=== PATIENT | male | born 1985 | race Caucasian/White ===

== ENCOUNTER 2017-07-01 14:20 | Emergency (ER) | payer BC ==
[2017-07-01] MEDS ORDERED: Bacitracin Oint 1 GM U/D Packet TOP ONE (14:36)
[2017-07-01] MEDS ORDERED: Diphtheria,Pertussis(Acell),Tetanus Vaccine 0.5 ML SDV IM ONE (15:08)
--- NOTE | 2017-07-01 15:14 | EDM.PDOC ---
ED HPI GENERAL MEDICAL PROBLEM - General Chief Complaint: Laceration Stated Complaint: LT HAND LACERATION Time Seen by Provider: 07/01/17 14:45 Source of Information: Reports: Patient History Limitations: Reports: No Limitations - History of Present Illness INITIAL COMMENTS - FREE TEXT/NARRATIVE: pt has a laceration in the left taylor salma, circular in shape from a bolt. The bolt had sharp edges. He is not current with his tetanus. Onset: Today Duration: Hour(s): Location: Reports: Upper Extremity, Left Associated Symptoms: Reports: No Other Symptoms Left Hand Pain Score (Numeric/FACES): 4 - Related Data Allergies Allergy/AdvReac Type Severity Reaction Status Date / Time No Known Allergies Allergy Verified 07/01/17 14:55 Home Meds: Home Meds NK [No Known Home Meds] 07/01/17 [History] Past Medical History - Past Health History Medical/Surgical History: Denies Medical/Surgical History Social & Family History - Tobacco Use Smoking Status *Q: Current Every Day Smoker Years of Tobacco use: 10 Packs/Tins Daily: 0.5 - Caffeine Use Caffeine Use: Reports: Coffee - Recreational Drug Use Recreational Drug Use: No ED ROS GENERAL - Review of Systems Review Of Systems: See Below Constitutional: Reports: No Symptoms HEENT: Reports: No Symptoms Respiratory: Reports: No Symptoms Cardiovascular: Reports: No Symptoms Endocrine: Reports: No Symptoms GI/Abdominal: Reports: No Symptoms : Reports: No Symptoms Musculoskeletal: Reports: Other (Pt has a circular laceration on the palm of his left had, 1 inch in length. ) Skin: Reports: No Symptoms ED EXAM, SKIN/RASH Exam: See Below Exam Limited By: No Limitations General Appearance: Alert Extremities: Other (pt has a 1 inch laceration in the palm of his left hand. ) Neurological: Alert, Oriented, Normal Cognition Course - Vital Signs Last Recorded V/S: Last Vital Signs Temp 36.6 C 07/01/17 15:00 Pulse 71 07/01/17 15:00 Resp 16 07/01/17 15:00 BP 145/90 H 07/01/17 15:00 Pulse Ox 96 07/01/17 15:00 - Orders/Labs/Meds Orders: Active Orders 24 hr Category Date Time Status Vaccines to be Administered [RC] PER UNIT ROUTINE Care 07/01/17 15:08 Ordered Diphth,Pertuss(Acell),Tet Vac [Adacel] Med 07/01/17 15:08 Once 0.5 ml IM .ONCE ONE Meds: Medications Discontinued Medications Generic Name Dose Route Start Last Admin Trade Name Cristian PRN Reason Stop Dose Admin Bacitracin 1 dose 07/01/17 14:36 07/01/17 15:00 Bacitracin Oint 1 Gm TOP 07/01/17 14:37 1 dose ONETIME ONE Administration Lidocaine HCl 5 ml 07/01/17 14:36 07/01/17 15:00 Xylocaine-Mpf 1% INJECT 07/01/17 14:37 5 ml ONETIME ONE Administration - Re-Assessments/Exams Free Text/Narrative Re-Assessment/Exam: 07/01/17 15:11 area was scrubbed well and irrigated. The wound was infiltrated with lidocaine and closed with 5-0 chromic and 5-0 prolene. it was dressed with bacatracin. Departure - Departure Time of Disposition: 15:13 Disposition: Home, Self-Care 01 Condition: Fair Clinical Impression: Laceration - Discharge Information Referrals: PCP,None [Primary Care Provider] - Care Plan Goals: keep dry keep well padded and covered, sr in 7-8 days. - My Orders Last 24 Hours: My Active Orders 07/01/17 15:08 Vaccines to be Administered [RC] PER UNIT ROUTINE Diphth,Pertuss(Acell),Tet Vac [Adacel] 0.5 ml IM .ONCE ONE - Assessment/Plan Last 24 Hours: My Active Orders 07/01/17 15:08 Vaccines to be Administered [RC] PER UNIT ROUTINE Diphth,Pertuss(Acell),Tet Vac [Adacel] 0.5 ml IM .ONCE ONE
== END 2017-07-01 15:15 | disposition home or self-care (01) ==
LOC: JP.ED 14:20
DX: S61.412A Laceration without foreign body of left hand, initial encounter (principal); F17.210 Nicotine dependence, cigarettes, uncomplicated; Z23 Encounter for immunization; W26.9XXA Contact with unspecified sharp object(s), initial encounter
CPT/HCPCS: 12001; 90471; 90715; 99283-25

== ENCOUNTER 2022-12-23 00:51 | Emergency (ER) | payer BC ==
[2022-12-23] MEDS ORDERED: Proparacaine 0.5% Ophth Soln 15 ML Bottle EYEBOTH ONE (01:22)
== END 2022-12-23 01:46 | disposition home or self-care (01) ==
LOC: JP.ED 00:51
DX: H16.8 Other keratitis (principal); F17.210 Nicotine dependence, cigarettes, uncomplicated
CPT/HCPCS: 99283; A9270